=== PATIENT | female | born 2000 | race Two or more races ===

== ENCOUNTER → 2024-04-04 | Outpatient (CLI) | payer BC, SELFPAY ==
[2024-04-04 09:49] LABS: Follicle Stimulating Hormone 3.53 mIU/mL (See Note)
[2024-04-12 06:28] LABS: Albumin 3.8 g/dL (3.6-5.1); Estradiol, Ultrasensitive* 10 pg/mL; Luteinizing Hormone* 1.4 mIU/mL; SHBG 186 nmol/L (17-124); Testosterone, Bioavailable 1.4 ng/dL (0.5-8.5); Testosterone, Free 0.8 pg/mL (0.2-5.0); Testosterone,Total 30 ng/dL (2-45)
== END | disposition home or self-care (01) ==
LOC: COPL 08:27
PROVIDERS: PCP Internal Medicine; Referring Provider Internal Medicine Endocrinology, Diabetes & Metabolism; Visit Provider Internal Medicine Endocrinology, Diabetes & Metabolism
DX: E28.2 Polycystic ovarian syndrome (principal)
CPT/HCPCS: 36415; 82040; 82670; 83001; 83002; 84270; 84403